=== PATIENT | female | born 1940 | race Hispanic/Latino ===

== ENCOUNTER 2018-02-26 18:36 | Emergency (ER) | payer OTHER, MEDICARE ==
[~2018-02-26 18:36] MED LIST: ASPI-1012 PO; ATEN100T PO; ATOR10 PO; HYDR-2132 PO; HYDR25TA PO; LEVO137T2 PO; POTA-79 PO
[2018-02-26] MEDS ORDERED: CYCLOBENZAPRINE HCL 10 MG TABLET ONE (20:17)
[2018-02-26] MEDS ORDERED: LIDOCAINE 5% TOPICAL PATCH TP ONE (20:17)
[2018-02-26] MEDS ORDERED: ACETAMINOPHEN EXTRA STRENGTH 500 MG TABLET ONE (20:17)
== END 2018-02-26 20:45 | disposition home or self-care (01) ==
LOC: EDH 18:36
DX: G57.01 Lesion of sciatic nerve, right lower limb (principal); M25.551 Pain in right hip; M54.5 Low back pain; I10 Essential (primary) hypertension; E78.5 Hyperlipidemia, unspecified
CPT/HCPCS: 73521

== ENCOUNTER 2021-12-16 04:51 | Emergency (ER) | payer OTHER, MEDICARE ==
[~2021-12-16] VITALS: Ht 157.5 cm; Wt 103.4 kg
[2021-12-16] MEDS ORDERED: MORPHINE 2 MG SYG IM ONE (05:30)
[2021-12-16] MEDS ORDERED: GABA300C PO (06:43)
[2021-12-16] MEDS ORDERED: LIDOP TD (06:43)
[2021-12-16] MEDS ORDERED: IBUP-2088 PO (06:44)
[2021-12-16 07:09] VITALS: BP 145/82
== END 2021-12-16 07:10 | disposition home or self-care (01) ==
LOC: EDH 04:51
DX: M79.18 Myalgia, other site (principal); M25.511 Pain in right shoulder; E78.00 Pure hypercholesterolemia, unspecified; I10 Essential (primary) hypertension; Z98.890 Other specified postprocedural states; Z79.899 Other long term (current) drug therapy; Z79.82 Long term (current) use of aspirin
CPT/HCPCS: 71046; 73030; 96372

== ENCOUNTER → 2024-02-01 | Outpatient (CLI) | payer OTHER ==
[~2024-02-01] MED LIST changes: +GABA300C PO; +IBUP-2088 PO; +LIDOP TD; +POTA-364 PO; -POTA-79 PO
--- NOTE | 2024-02-01 16:22 | HMCIMG ---
US THYROID/NECK HISTORY: Elevated TSH COMPARISON: None TECHNIQUE: Thyroid ultrasound study was performed. FINDINGS: Right thyroid lobe measures cm. Left thyroid lobe measures cm. No discrete thyroid nodule is seen. IMPRESSION: 1. No discrete thyroid nodule is seen.
== END | disposition home or self-care (01) ==
LOC: RAH 13:47
PROVIDERS: ATTEND Family Medicine
DX: R79.89 Other specified abnormal findings of blood chemistry (principal); R94.6 Abnormal results of thyroid function studies
CPT/HCPCS: 76536